=== PATIENT | female | born 1985 | race Caucasian/White ===

== ENCOUNTER 2020-06-22 13:20 | Emergency (ER) | payer OTHER, SELFPAY ==
--- NOTE | ~2020-06-22 | CT_ITS ---
EXAMINATION: CT abdomen pelvis wo con DATE: 06/22/2020 15:44 INDICATION: Right flank pain. TECHNIQUE: Computed tomography (CT) of the abdomen and pelvis was performed without intravenous contr ast. Automated exposure control and iterative reconstruction technique were employed. The dose-length product was 383.15 mGy-cm. COMPARISON: None. FINDINGS: The visualized portions of the lung bases demonstrate minimal atelectasis. No pleural effus ion. The heart size is normal. No pericardial effusion. There is a small sliding hiatal hernia. The l iver and spleen are normal. There are changes of cholecystectomy. The pancreas, adrenal glands, and k idneys are normal. There is no urolithiasis. There are no dilated loops of bowel. There is diverticul osis of the colon without evidence of diverticulitis. The appendix is normal. There are no pathologic ally enlarged lymph nodes. There is no free intraperitoneal fluid. There is a benign bone island in r ight ilium. IMPRESSION: 1. No urolithiasis. 2. Small sliding hiatal hernia. Reviewed, dictated and finalized at location B.
[2020-06-22 13:50] VITALS: BP 144/98; PULSE 109; RESP 16; TEMP 37.2; O2SAT 99
[2020-06-22 14:30] LABS: Add Urine Microscopic? NO; Appearance Urine Clear (Clear); Bilirubin Urine Negative (Negative); Blood Urine Negative (Negative); Color Urine Yellow (Yellow); Glucose Urine UA Negative (Negative); Ketones Urine Negative (Negative); Leukocyte Esterase Ur Negative LEU/UL (Negative); Nitrate Urine Negative (Negative); Protein Urine Negative (Negative); Urobilinogen Urine 0.2 mg/dL (0.2-1.0)
[2020-06-22] MEDS: KETOROLAC 30 MG/ML VIAL (*BKC) IV PUSH (14:39)
[2020-06-22] MEDS: SODIUM CHLORIDE 0.9% IV 1,000 ML 999 ML IV CONT (14:39)
[2020-06-22 14:48] LABS: Basophils Absolute Auto 0.04 K/mm3 (0.00-0.10); Basophils Percent Auto 0.8 % (0.0-1.0); Eosinophils Absolute Auto 0.17 K/mm3 (0.02-0.50); Eosinophils Percent Auto 3.3 % (1.0-6.0); Hemoglobin 13.1 g/dL (12.0-15.0); Immature Granulocyte Absolute 0.02 K/mm3 (0.00-0.00); Immature Granulocyte Percent A 0.4 % (0.0-0.0); Lymphocytes Absolute Auto 1.89 K/mm3 (1.10-4.50); Lymphocytes Percent Auto 36.6 % (18.0-42.0); Mean Corpuscular HGB Conc 33.6 g/dL (32.0-36.0); Mean Corpuscular Hemoglobin 30.4 pg (27.0-31.0); Mean Corpuscular Volume 90.5 fL (78.0-102.0); Mean Platelet Volume 10.4 fl (9.2-11.8); Monocytes Absolute Auto 0.58 K/mm3 (0.10-0.90); Monocytes Percent Auto 11.2 % (2.0-11.0); Neutrophils Absolute Auto 2.5 K/mm3 (1.7-7.2); Neutrophils Percent Auto 47.7 % (50.0-70.0); Platelet Count Result 278 K/mm3 (150-420); Red Blood Count 4.31 M/mm3 (4.20-5.40); White Blood Count 5.2 K/mm3 (4.8-10.8)
[2020-06-22 15:09] LABS: Alanine Aminotransferase 34 U/L (14-59); Albumin Level 3.3 g/dL (3.4-5.0); Alkaline Phosphatase 100 U/L (46-116); Anion Gap 6 mmol/L (8-16); Aspartate Amino Transferase 19 U/L (15-37); Bilirubin,Total 0.2 mg/dL (0.00-1.00); Blood Urea Nitrogen 8 mg/dL (7-18); Calcium 8.3 mg/dL (8.5-10.1); Carbon Dioxide 28 mmol/L (21-32); Chloride 105 mmol/L (98-108); Estimated CRCL calculation 91 ml/min; Estimated Glomerular Filt Rate > 60; Glucose 82 mg/dL (70-99); Osmolality Calculated 285 mOsm/kg (285-295); Potassium 3.9 mmol/L (3.5-5.1); Sodium 139 mmol/L (136-145); Total Protein 6.9 g/dL (6.4-8.2)
[2020-06-22 15:31] LABS: Pregnancy On Board Control Positive; Urine Pregnancy Test Negative
--- NOTE | 2020-06-22 16:10 | ED.BACK ---
HPI - Back Pain/Injury General Chief Complaint: Back Pain/Injury Stated Complaint: possible kidney stone Related Data Allergies Allergy/AdvReac Type Severity Reaction Status Date / Time amoxicillin Allergy Unknown HEADACHE, Verified 06/22/20 14:11 DIARRHEA clavulanic acid Allergy Unknown HEADACHE, Verified 06/22/20 14:11 DIARRHEA levofloxacin Allergy Unknown Rash Verified 06/22/20 14:11 morphine Allergy Unknown ITCHING Verified 06/22/20 14:11 Review of Systems Review of Systems: All systems reviewed & are unremarkable except as noted in HPI and below Constitutional: Constitutional: Reports no additional constitutional complaints Eyes: Eyes: Reports no additional eye complaints ENT: Reports system reviewed and no additional complaints, except as documented Cardiovascular: Cardiovascular: Reports no additional cardiovascular complaints Respiratory: Respiratory: Reports no additional respiratory complaints Gastrointestinal: Gastrointestinal: Reports no additional gastrointestinal complaints Genitourinary: Genitourinary: Reports no additional female genitourinary complaints Musculoskeletal: Musculoskeletal: Reports no additional musculoskeletal complaints and Reports back pain Integumentary/Breasts: Skin/Breast: Reports system reviewed and no additional complaints, except as docu Neurologic: Reports system reviewed and no additional complaints, except as documented Psychiatric: Psychiatric: Reports no additional psychiatric complaints Endocrine: Endocrine: Reports no additional endocrine complaints Hematologic/Lymphatic: Hematologic/Lymphatic: Reports no additional hematologic/lymphatic complaints Allergic/Immunologic: Allergic/Immunologic: Reports no additional allergic/immunologic complaints [facility] Past Medical History Medical History (Updated 06/22/20 @ 16:25 by Maile Montelongo MD) Cholecystectomy planned Social History Social History (Updated 06/22/20 @ 16:30 by Maile Montelongo MD) Smoking status: Never smoker Alcohol intake: never Substance use: never Gender identity (if verbalized by the patient): Female Exam Const: General: cooperative, healthy appearing, comfortable, no acute distress, well developed and anxious HENMT: Head: normal to inspection Eyes: General: appearance normal, both eyes and all related structures Course Vital Signs Vital signs: Vital Signs Temperature 37.2 C 06/22/20 13:50 Pulse Rate 109 H 06/22/20 13:50 Respiratory Rate 16 06/22/20 13:50 Blood Pressure 144/98 H 06/22/20 13:50 Pulse Oximetry 99 06/22/20 13:50 Temperature 37.2 C 06/22/20 13:50 Pulse Rate 109 H 06/22/20 13:50 Respiratory Rate 16 06/22/20 13:50 Blood Pressure 144/98 H 06/22/20 13:50 Pulse Oximetry 99 06/22/20 13:50 MDM - Back Pain/Injury Lab Data Result diagrams: 06/22/20 14:44 06/22/20 14:44 Labs: Lab Results 06/22/20 06/22/20 06/22/20 Range/Units 14:00 14:00 14:44 WBC 5.2 (4.8-10.8) K/mm3 RBC 4.31 (4.20-5.40) M/mm3 Hgb 13.1 (12.0-15.0) g/dL Hct 39.0 (35.0-49.0) % MCV 90.5 (78.0-102.0) fL MCH 30.4 (27.0-31.0) pg MCHC 33.6 (32.0-36.0) g/dL RDW 12.0 (11.6-14.4) % Plt Count 278 (150-420) K/mm3 MPV 10.4 (9.2-11.8) fl Immature Gran % (Auto) 0.4 H (0.0-0.0) % Neut % (Auto) 47.7 L (50.0-70.0) % Lymph % (Auto) 36.6 (18.0-42.0) % [place] % (Auto) 11.2 H (2.0-11.0) % Eos % (Auto) 3.3 (1.0-6.0) % Baso % (Auto) 0.8 (0.0-1.0) % Lymph # (Auto) 1.89 (1.10-4.50) K/mm3 [place] # (Auto) 0.58 (0.10-0.90) K/mm3 Eos # (Auto) 0.17 (0.02-0.50) K/mm3 Baso # (Auto) 0.04 (0.00-0.10) K/mm3 Abs Immat Gran (auto) 0.02 H (0.00-0.00) K/mm3 Absolute Neuts (auto) 2.5 (1.7-7.2) K/mm3 Absolute Nucleated RBC 0.00 (0.00-0.00) K/mm3 Nucleated RBC % 0.0 (0-0.0) % Sodium (136-145) mmol/L Potassium (3.5-5.1) m
[2020-06-22 16:30] VITALS: BP 146/80; PULSE 79; RESP 16; TEMP 36.9; O2SAT 100
== END 2020-06-22 16:31 | disposition home or self-care (01) ==
PROVIDERS: Emergency Provider Emergency Medicine; PCP Internal Medicine
DX: S39.012A Strain of muscle, fascia and tendon of lower back, initial encounter (principal)
CPT/HCPCS: 36415; 74176; 80053; 81003; 81025; 85025; 96361; 96374; 99283; 99284; J1885; J7030

== ENCOUNTER 2021-05-25 16:37 | Outpatient (CLI) | payer OTHER, SELFPAY ==
--- NOTE | ~2021-05-25 | XR_ITS ---
EXAMINATION: XR ankle RT min 3V, XR foot RT min 3V EXAM DATE: 05/25/2021 17:01 (accession [id number]), 05/25/2021 17:02 (accession [id number]) INDICATION: No known recent injury provided at this time. Pain of the right foot and ankle. Symptoms one month. TECHNIQUE: Right foot dorsoplantar, lateral and oblique projections obtained and reviewed. Right ank le frontal, lateral and oblique projections obtained and reviewed. There is no prior study for lois dominguez. FINDINGS: Right metatarsal bones unremarkable. The right ankle mortise appears intact. No talar o steochondral defect. Small inferior calcaneal spur. Several punctate densities in the heel fat-pad pr obably introduced from prior injury. These are not likely clinically significant, assuming patient do es not have soft tissue pain or tenderness along the undersurface of the heel. No other radiopaque fo reign bodies are identified. There are no acute fractures identified. No periosteal reaction or band of sclerosis to suggest subacute stress fracture. There are no bony erosions identified. IMPRESSION: 1. Several punctate foreign bodies in right heel fat-pad, probably from old injury but clinical carlos elation. 2. Small inferior calcaneal spur. Reviewed, dictated and finalized at location B. IMPRESSION: 1. Several punctate foreign bodies in right heel fat-pad, probably from old in jury but clinical correlation. 2. Small inferior calcaneal spur.
== END 2021-05-25 16:38 | disposition home or self-care (01) ==
LOC: CHSIMG 16:41
PROVIDERS: PCP Family Medicine; Visit Provider Family Medicine
DX: M25.571 Pain in right ankle and joints of right foot (principal)
CPT/HCPCS: 73610; 73630

== ENCOUNTER 2025-02-15 14:16 | Emergency (ER) | payer OTHER, SELFPAY ==
[2025-02-15 14:18] VITALS: BP 163/113; PULSE 84; RESP 16; TEMP 36.8; O2SAT 100
--- NOTE | 2025-02-15 14:33 | ED_ITS ---
HPI - Allergic Reaction General Chief complaint: Allergic Reaction Stated complaint: swollen eye Time Seen by Provider: 02/15/25 14:21 Source: patient Mode of arrival: ambulatory Limitations: no limitations History of Present Illness HPI narrative: Patient is a 39-year-old female with a significant past medical history that presents today for allergic reaction. Patient states she has learned to many things and she sees an crm functional analyst and takes multiple allergy pills. She says that she ever wants a while she gets a flare up and her face flares up and normally is her left ear and left eye. And that is the case this time her left ear is red and swollen and her eye is swollen on her top upper eyelid. She normally gets a shot a steroid and a Medrol Dosepak for home med this works well for her. complaint: allergic reaction Onset (ago): day(s) Exposure: unknown Known history of allergy to: Multiple allergies Symptoms: rash, itching and facial swelling Severity: moderate Treatment prior to arrival: benadryl Previous Allergic Reaction History: prior ED visit(s) Related Data Home Medications ?Medication ?Instructions ?Recorded ?Confirmed ?Last Taken ?Type buspirone 5 mg tablet 5 mg PO BID 06/13/22 Unknown History Allergies Allergy/AdvReac Type Severity Reaction Status Date / Time amoxicillin Allergy Unknown HEADACHE, Verified 02/15/25 14:21 DIARRHEA clavulanic acid Allergy Unknown HEADACHE, Verified 02/15/25 14:21 DIARRHEA levofloxacin Allergy Unknown Rash Verified 02/15/25 14:21 morphine Allergy Unknown ITCHING Verified 02/15/25 14:21 Review of Systems Review of Systems: All systems reviewed & are unremarkable except as noted in HPI and below Constitutional: Constitutional: Reports as per HPI Eyes: Eyes: Reports as per HPI Comments: edema above left eyelid ENT: Reports as per HPI Comments: left ear edema and erythema Cardiovascular: Cardiovascular: Reports no additional cardiovascular complaints Respiratory: Respiratory: Reports no additional respiratory complaints Gastrointestinal: Gastrointestinal: Reports no additional gastrointestinal complaints Genitourinary: Genitourinary: Reports no additional female genitourinary complaints Musculoskeletal: Musculoskeletal: Reports no additional musculoskeletal complaints Integumentary/Breasts: Skin/Breast: Reports system reviewed and no additional complaints, except as docu Neurologic: Reports system reviewed and no additional complaints, except as documented Psychiatric: Psychiatric: Reports no additional psychiatric complaints Endocrine: Endocrine: Reports no additional endocrine complaints Hematologic/Lymphatic: Hematologic/Lymphatic: Reports no additional hematologic/lymphatic complaints Allergic/Immunologic: Allergic/Immunologic: Reports no additional allergic/immunologic complaints [facility] Past Medical History Medical History Ear pain Foreign body in right foot Moderate right ankle sprain High ankle sprain of right lower extremity Cholecystectomy planned Surgical History Surgical History History of tonsillectomy History of cholecystectomy History of repair of ACL Family History Family History Other Asthma Grandparent Hypertension Heart disease Other Arthritis Social History Social History Smoking status: Never smoker Alcohol intake: current Drinks per week: 2 Substance use: never Gender identity (if verbalized by the patient): Female Exam Const: General: healthy appearing Nutritional Appearance: well nourished Orientation/consciousness: patient oriented x3 HENMT: Head: normal to inspection Ears: external ears normal Face/Nose/Sinus: Normal external nose present Face and sinus: normal facial exam Eyes: Conjunctivae: conjunctivae normal Pupils: Equal, round and reactive pupils present EOM: EOMs intact bilaterally Neck: Neck: normal visual inspection Chest: Chest palpation & inspection: normal inspection of the chest Resp: Effort & Inspection: normal respiratory effort Auscultation: clear to auscultation bilaterally Cardio: Rate: regular rate Rhythm: regular rhythm GI: GI Palp: Yes Soft to palpation Back/Spine/Pelvis: Back: no CVA tenderness Skin: General skin exam: normal color Wounds: no wounds Other: rash on left ear Neuro: General: patient oriented x3 Cranial nerves: Yes Nystagmus not present Speech: normal speech Gait exam (Neuro): Normal gait present Extrem: General: normal to inspection Psych: Mental Status: mental status grossly normal Affect: normal affect Attitude: cooperative Course Vital Signs Vital signs: Vital Signs Temperature 98.3 F 02/15/25 14:18 Pulse Rate 84 02/15/25 14:18 Respiratory Rate 16 02/15/25 14:18 Blood Pressure 163/113 H 02/15/25 14:18 Pulse Oximetry 100 02/15/25 14:18 Oxygen Delivery Room Air 02/15/25 14:18 Temperature 98.3 F 02/15/25 14:18 Pulse Rate 84 02/15/25 14:18 Respiratory Rate 16 02/15/25 14:18 Blood Pressure 163/113 H 02/15/25 14:18 Pulse Oximetry 100 02/15/25 14:18 Oxygen Delivery Room Air 02/15/25 14:18 MDM - Allergic Reaction MDM Narrative Medical decision making narrative: discussed with patient about allergic reactions and to take a Medrol Dosepak as instructed. Will give her a shot of Decadron here in the ER and the Medrol Robbie for home. Discussed her gets any worse or she has any difficulty breathing to return to the emergency department. Differential Diagnosis Differential diagnosis: Likely allergic reaction Medical Records Attestation: I reviewed the patient's medical records. Discharge Plan Discharge Clinical Impression: Allergic reaction, Allergies Patient Disposition: Home Condition: Stable Instructions: Allergies (ED) Patient Language: Citizen Of [place] Prescriptions: No Action buspirone 5 mg tablet 5 mg PO BID Follow-up/Referrals: Manjinder Moreno MD [Primary Care Provider] - Time of Disposition: 14:41
[2025-02-15] MEDS: dexAMETHasone SOD PHOS INJ 10 MG/ML 1 ML VIAL IM (14:48)
[2025-02-15 15:14] VITALS: BP 135/87; PULSE 80; RESP 17; TEMP 36.8; O2SAT 100
--- OUTSIDE RECORDS SUMMARY | 2025-02-15 16:10 | XMS_ITS ---
Author Organization [facility] [employer] [facility] [place] ([address]) Address [address] [place] [address] Care Team Providers Care Type Proof Reproducer Name Role Phone Manjinder Moreno Primary Care Provider Unavailab Xenia Ferraro Unavailable [phone] REASON FOR VISIT ARC follow-up Encounters Encounter Location Date Provider Diagnosis [facility] [address] [place] [address] 11/05/2024 Xenia Azevedo Plan Of Treatment No Information Progress Notes * Eula AMNDOB:1985 (39 yo F)Acc No.[id number]:11/05/2024 Progress Notes Patient: Eula RAMIREZ Provider: Sharmila Azevedo PA-C :1985 A ge:38 Y S ex:Female Date:11/05/2024 Address:[address] [facility] Pcp:Manjinder Moreno Subjective: * Chief Complaints: * 1 . ARC follow-up. * Medical History: Objective: * Vitals: Assessment: Plan: * Treatment: * Billing Information: * Visit Code: * Procedure Codes: * Electronic signature of Jaylen Azevedo PA-C, MPAS on 02/15/2025 at 04:10 PM CDT Sign off status: Pending * Provider: Sharmila Azevedo PA-C Date: 0 11/05/2024 Generated for Sumanth greene/Mariah/Kathy on: 0 02/15/2025 04:10 PM CDT
--- OUTSIDE RECORDS SUMMARY | 2025-02-15 16:10 | XMS_ITS | Clinical Summary ---
Author Organization [facility] Address [address] [place] [address] Phone Care Team Providers Care Fire Protection Inspector Name Role Phone Unavailable Primary Care Provider Unavailabl e Allergies Active Allergy Reactions Criticality Noted Date Comments Amoxicillin-Pot Clavulanate Other (see Comments) 12/25/2016 Vomiting, diarrhea Levofloxacin Other (see Comments) 12/25/2016 Muscle weakness/pain Morphine Hives 06/19/2017 Medications HYDROcodone-acet aminophen (NORCO) 5-325 MG Tablet Take 1-2 Tabs by mouth every 4 hours as needed for Pain. 40 Tab 7 Active Additional Information Patient not taking.Reported on 07/26/2017 Naproxen Sodium (ALEVE) 220 MG Capsule Take by mouth. Activ e meloxicam (MOBIC) 7.5 MG Tablet Take 1 Tab by mouth daily. 8 Active Meloxicam 10 MG Capsule Take by mouth. Activ e TRAMADOL HCL ER PO Take by mouth. Activ e cefdinir (OMNICEF) 300 MG Capsule TK 1 C PO BID 0 9 Active Clindamycin HCl (CLEOCIN) 300 MG Capsule 0 9 Active ondansetron (ZOFRAN-ODT) 4 MG TABLET DISPERSIBLE DIS 1 T ON THE TONGUE Q 8 H PRF NAUSEA 0 9 Active predniSONE (DELTASONE) 20 MG Tablet 0 9 Active Active Problems No known active problems Immunizations Immunization Administration Dates Next Due Influenza Vaccine greater than 3 yrs 08/26/2018 MMR Vaccine 04/26/2014 Family History Medical History Relation Name Comments High Cholesterol Father Hypertension Father High Cholesterol Mother Hypertension Mother Relation Name Status Comments Father Alive Mother Alive Social History Tobacco Use Types Packs/Day Years Used Date Smoking Tobacco: Never Smokeless Tobacco: Never Tobacco Cessation:Counseling Given: Yes Alcohol Use Standard Drinks/Week Comments Yes 0 (1 standard drink = 0.6 oz pur e alcohol) social Sexually Active Control Partners Comments Yes Comments No Sex and Gender Information Value Date Recorded Sex Assigned at Not on file Legal Sex Female 10:00 PM CDT Gender Identity Not on file Sexual Orientation Not on file Last Filed Vital Signs Vital Sign Reading Time Taken Comments Blood Pressure 134/70 10/08/2020 3:55 PM COMPONENTS ENGINEER Pulse 90 10/08/2020 3:55 PM COMPONENTS ENGINEER Temperature 37.1 C (98.7 F) 10/08/2020 3:55 PM COMPONENTS ENGINEER Respiratory Rate 16 10/08/2020 3:55 PM COMPONENTS ENGINEER Oxygen Saturation 98% 10/08/2020 3:55 PM COMPONENTS ENGINEER Inhaled Oxygen Concentration - - Weight 95.7 kg (211 lb) 10/08/2020 3:55 PM COMPONENTS ENGINEER Height 167.6 cm (5' 6 ) 06/26/2019 9:16 AM CDT Body Mass Index 34.06 06/26/2019 9:16 AM CDT Plan of Treatment Health Maintenance Due Date Last Done Comments Hepatitis C Virus (HCV) Screening 1985 Hepatitis B Immunization (1 of 3 - 19+ 3-dose series) 2005 Pap Smear 2007 Cervical Cancer Screening (CCS) 2016 HPV/Cotest 2016 Influenza Immunization (#1) 06/28/202407/30, 08/23/2018, 08/11/2017, Additional history exists SARS-COV-2 Immunization ( season) 2024 10/06/2021, 01/24/2021, 01/03/2021 Respiratory Syncytial Virus (RSV) Immunization (Adult) (1 - 1-dose 75+ series) 2061 DTaP/Tdap/Td Immunization Discontinued 07/03/2020 TdaP Immunization Completed 07/03/2020 Meningococcal Immunization (ACWY) Aged Out No longer eligible based on patient's age to complete this topic Pneumococcal Immunization Combined Aged Out No longer eligible based on patient's age to complete this topic Rotavirus Immunization Aged Out No lo nger eligible based on patient's age to complete this topic Insurance
--- OUTSIDE RECORDS SUMMARY | 2025-02-15 16:10 | XMS_ITS | Referral Summary ---
Author Organization [facility] Address [address] [place] [address] Care Team Providers Care Homebirth Midwife Name Role Phone Gary Lopez MD Primary Care Provider [phone] Allergies Active Allergy Reactions Criticality Noted Date Comments Amoxicillin-Pot Clavulanate Nausea & Vomiting Low 12/25/2016 Levofloxacin Other (See comments) Low 12/25/2016 Muscle weakness/pain Morphine Hives Medium Reaction: HIVES, Medications cetirizine (ZyrTEC) 5 mg tablet Take 5 mg by mouth daily Active busPIRone (BUSPAR) 5 mg tabletIndicatio ns:Generalized Anxiety Disorder Take 1 tablet three times a day as needed 90 tablet 2 2 Active ibuprofen (ADVIL,MOTRIN) 800 mg tablet TAKE 1 TABLET BY MOUTH EVERY 8 HOURS NEEDED WITH MENSTRUAL CYCLE. 30 tablet 1 2 Active Additional Information Patient not taking.Reported on 08/01/2022 doxycycline 100 mg tablet Take 1 tablet/capsule (100 mg total) by mouth 2 (two) times a day 3 Active methylPREDNISol one (MEDROL DOSEPACK) 4 mg Dosepack TAKE 6 TABLETS ON DAY 1 DIRECTED ON PACKAGE AND DECREASE BY 1 TAB EACH DAY FOR A TOTAL OF 6 DAYS 3 Active metoprolol XL (TOPROL-XL) 50 mg extended release tablet Take 1 tablet (50 mg total) by mouth daily 3 Active predniSONE (DELTASONE) 10 mg tablet PLEASE SEE ATTACHED FOR DETAILED DIRECTIONS 4 Active montelukast (SINGULAIR) 10 mg tablet 4 Active desonide (DESOWEN) 0.05 % ointment APPLY 1 APPLICATION TOPICALLY TWICE A DAY FOR 7 DAYS 4 Active benzonatate (TESSALON) 200 mg capsule Take 1 capsule (200 mg total) by mouth 3 (three) times a day 4 Active azithromycin (ZITHROMAX) 250 mg tablet TAKE 2 TABLETS BY MOUTH TODAY, THEN TAKE 1 TABLET DAILY FOR 4 DAYS DIRECTED 4 Active Active Problems Problem Noted Date Diagnosed Date Menorrhagia with regular cycle 12/20/2020 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 Overview (01/31/2017): High risk HPV infection Social History Tobacco Use Types Packs/Day Years Used Date Smoking Tobacco: Never Smokeless Tobacco: Never Tobacco Cessation:Counseling Given: Not Answered Alcohol Use Standard Drinks/Week Comments No 0 (1 standard drink = 0.6 oz pur e alcohol) PHQ-2 Answer Date Recorded PHQ-2 Total Score (If total score is 3 or more points, staff should administer the PHQ-9) 0 02/12/2024 Comments No Sex and Gender Information Value Date Recorded Sex Assigned at Not on file Legal Sex Female 3:12 PM [employer] Gender Identity Not on file Sexual Orientation Not on file Last Filed Vital Signs Vital Sign Reading Time Taken Comments Blood Pressure 124/76 02/12/2024 10:30 AM CDT Pulse 71 08/01/2022 10:52 AM CDT Temperature 36.2 C (97.1 F) 12/18/2020 6:49 PM [employer]Y INTERNS[employer]IP Respiratory Rate 16 12/18/2020 6:49 PM [employer] INTER[employer] Oxygen Saturation 99% 12/18/2020 6:49 PM [employer] Inhaled Oxygen Concentration - - Weight 104.8 kg (231 lb) 02/12/2024 10:30 AM CDT Height 167.6 cm (5' 6 ) 02/12/2024 10:30 AM CDT Body Mass Index 37.28 02/12/2024 10:30 AM CDT Plan of Treatment Not on file Procedures Procedure Name Priority Date/Time Associated Diagnosis Comments PAP AND HPV, REFLEX TO HPV GENOTYPES Routine 02/12/2024 1:12 PM CDT Well woman exam from Last 3 Months or Most Recently Relevant to Health Maintenance Results * Pap and HPV, reflex to HPV Genotypes (02/12/2024 1:12 PM CDT) Clinical indication Comment [facility] - 01 Comment: NEGATIVE FOR INTRAEPITHELIAL LESION OR MALIGNANCY. CELLULAR CHANGES ASSOCIATED WITH INFLAMMATION ARE PRESENT. Specimen adequacy: Comment [facility] - 01 Comment: Satisfactory for evaluation. Endocervical and/or squamous metaplastic cells (endocervical component) are present. Clinician provided ICD10 Comment [facility] - 01 Comment:Z01.419 Performed by Comment [facility] - 01 Comment:Alex Rincon ytotechnologist (ASCP) . . [facility] - 01 Note: Comment [facility] - 01 Comment: The Pap smear is a screening test designed to aid in the detection of premalignant and malignant conditions of the uterine cervix. It is not a diagnostic procedure and should not be used as the sole means of detecting cervical cancer. Both false-positive and false-negative reports do occur. Test methodology Comment [facility] - 01 Comment: This liquid based ThinPrep(R) pap test was screened with the use of an image guided system. HPV Aptima Negative Negative [facility] 02 Comment: This nucleic acid amplification test detects fourteen high-risk HPV types (16,18,31,33,35,39,45,51,52,56,58,59,66,68) without differentiation. HPV Genotype Reflex Comment [facility] - 01 Comment:Criteria not met, HP V Genotype not performed. Thin prep 02/12/2024 1:12 PM CDT 02/12/2024 Narrative [facility] - 02/16/2024 9:08 AM CDT Performed at: - [facility] [id number] Travel Insurance Agent: Ita Esparza MD, Phone: [phone] Performed at: 02 - [facility] [id number] Travel Insurance Agent: Ita Esparza MD, Phone: [phone] Specimen Comment: No. of containers..01 ThinPrep Vial Felisa Olivares ENGINEERING GROUP LEADER LAB CYTOLOGY ORDERABLES Final Re sult [facility] - 01 [facility] 02 from Last 3 Months or Most Recently Relevant to Health Maintenance Insurance Care Teams Homebirth Midwife Relationship Specialty Start Date End Date Gary Lopez MD [address] [place] [address] PCP - General Internal Medicine 05/13/17
--- OUTSIDE RECORDS SUMMARY | 2025-02-15 16:10 | XMS_ITS | Clinical Summary ---
Author Organization [facility] Address [address] [place] [address] Care Team Providers Care Director Utilization Management Name Role Phone Gary Lopez MD Primary Care Provider [phone] Allergies Active Allergy Reactions Criticality Noted Date [...] 08/25/2012 Overview (01/31/2017): High risk HPV infection Surgical History Surgery Date Site/Laterality Comments OTHER SURGICAL HISTORY 10/28/2011 - 10/27/2012 : 2 hr labor OTHER SURGICAL HISTORY Positive HR HPV: Paps now normal ANTERIOR CRUCIATE LIGAMENT REPAIR 11/28/2006 - 12/25/2006 CHOLECYSTECTOMY TONSILLECTOMY 06/28/2007 - 07/27/2007 COLPOSCOPY 04/13/2019 Medical History Medical History Date Comments Hx Other Medical 2011 ; Outc ome: 40 week 6 lb(s) 13 oz Male Hx Other Medical 2008 Positive HR HPV Abnormal Pap smear of cervix + H PV Family History Medical History Relation Name Comments Hyperlipidemia Father Hypertension Father Hypertension Mother Coronary artery disease Other Fami ly history of Coronary artery disease; Breast cancer Neg Hx Colon cancer Neg Hx Ovarian cancer Neg Hx Uterine cancer Neg Hx Relation Name Status Comments Father Mother Other Social History Tobacco Use Types Packs/Day Years [...] on file Legal 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 Gender Identity Not on file Sexual Orientation Not on file Obstetrics History Para Term AB IAB SAB Ectopic Multiple Livin g Live Births 3 2 2 1 1 2 2 Date Outcome GA Total Labor Labor/2nd/3rd Weight Sex Type Anes PTL Shweta A1 A5 Name Clin SAB 0 Term 2.948 kg (6 lb 8 oz) F Vag-Sp ont 2 Term 2.948 kg (6 lb 8 oz) M Vag-Sp ont Last Filed Vital Signs Vital Sign Reading Time Taken Comments Blood Pressure 124/76 02/12/2024 10:30 AM CDT Pulse 71 08/01/2022 10:52 AM CDT Temperature 36.2 C (97.1 F) 12/18/2020 6:49 PM 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 Respiratory Rate 16 12/18/2020 6:49 PM 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 Oxygen Saturation 99% 12/18/2020 6:49 PM 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 Inhaled Oxygen Concentration - - Weight 104.8 kg (231 lb) 02/12/2024 10:30 AM CDT Height 167.6 cm (5' 6 ) 02/12/2024 10:30 AM CDT Body Mass Index 37.28 02/12/2024 10:30 AM CDT Plan of Treatment Health Maintenance Due Date Last Done Comments Hepatitis C Screening 1985 DTaP/Tdap/Td Vaccine (1 - Tdap) 1997 Varicella Vaccines (1 of 2 - 13+ 2-dose series) 1999 Hepatitis B Screening 2004 Cervical Cancer Screening 02/11/20252023, 02/07/2023, 08/06/2022, Additional history exists Depression Screening 02/11/2025 02/12/2024, 02/07/2023, 02/05/2022, Additional history exists Regular Well Visit/Exam 18-64 02/11/2025 02/12/2024, 02/07/2023, 02/05/2022, Additional history exists Influenza Vaccine Completed 08/18/2024, , 08/23/2018, Additional history exists HPV Vaccines Aged Out No longer eligi ble based on patient's age to complete this topic Pneumococcal vaccine <65 Aged Out No longer eligible based on patient's age to complete this topic Procedures Procedure Name Priority Date/Time Associated Diagnosis [...] do occur. Test methodology Comment [facility] - Comment: This liquid based ThinPrep(R) pap test was screened with the use of an image guided system. HPV Aptima Negative Negative [facility] Comment: This nucleic acid amplification test detects fourteen high-risk HPV types (16,18,31,33,35,39,45,51,52,56,58,59,66,68) without differentiation. HPV Genotype Reflex Comment [facility] - 01 Comment:Criteria not met, HP V Genotype not performed. Thin prep 02/12/2024 1:12 PM CDT 02/12/2024 Narrative [facility] - 02/16/2024 9:08 AM CDT Performed at: - [facility] [id number] It Architect: Ita Esparza MD, Phone: [phone] Performed at: - [facility] [id number] It Architect: Ita Esparza MD, Phone: [phone] Specimen Comment: No. of containers..01 ThinPrep Vial us Felisa Olivares CLASSIFIED ADVERTISING CLERK LAB CYTOLOGY ORDERABLES Final Re sult [facility] - 01 [facility] 02 from Last 3 Months or Most Recently Relevant to Health Maintenance Insurance [facility] Care Teams Director Utilization Management Relationship Specialty Start Date End Date Gary Lopez MD [address] [place] [address] PCP - General Internal Medicine 05/13/17
--- OUTSIDE RECORDS SUMMARY | 2025-02-15 16:11 | XMS_ITS ---
Author Organization [facility] [place] ([address]) Address [address] [facility] [address] [place] [address] Care Team Providers Care Hospital Unit Clerk Name Role Phone Manjinder Moreno Primary Care Provider Unavailab Xenia Ferraro Unavailable [phone] REASON FOR VISIT Needs a call back Medications Medication SIG (Take, Route, Fr equency, Duration) Notes Start Date End Date Status predniSONE 20 MG 2 tabs Orally Once a day for 5 days 02/15/2025 Active Encounters Encounter Location Date Provider Diagnosis [address] [address] 02/15/2025 Xenia Azevedo Plan Of Treatment Medication Medication Name Sig Start Date Stop Date Notes predniSONE 20 MG 2 tabs Orally Once a day for 5 days 02/15 Progress Notes * Eula MANDOB:1985 (39 yo F)Acc No.[id number]:02/15/2025 Patient: Eula RAMIREZ :1985 A ge:39 Y S ex:Female Address:[address] [place] [address] * Refills Start predniSONE Tablet, 20 MG, Orally, 10 Tablet, 2 tabs, Once a day, 5 days, Refills=0 * true * Date: Generated for Sumanth greene/Mariah/eTransmitting on: 0 02/15/2025 04:11 PM CDT
--- OUTSIDE RECORDS SUMMARY | 2025-02-15 16:11 | XMS_ITS | Patient Health Record ---
Author Organization [employer] [facility] ([address]) Address [address] [place] [address] Care Team Providers Care Cloth Sponger Name Role Phone Manjinder Moreno Primary Care Provider Unavailab le Xenia Azevedo Unavailable [phone] Selena Garcia Unavailable [phone] Gloria Guillermo Unavailable [phone] [facility], Provider Unavailable Unavailab le Allergies Allergen (clinical drug ingredient) Drug/Non Drug Allergy documented on EMR Reaction Allergy Type Onset Date Status LEVOQUIN (uncoded) Sever joint pain Allergy Active amoxicillin / clavulanate Augmentin Vomiting, diarrhea , dizziness Drug Allergy Active morphine Morphine Hives, itching Drug Allergy Ac tive Reason For Referral No Information Medications Medication SIG (Take, Route, Frequency, Duration) Notes Start Date End Date Status predniSONE 20 MG 2 tabs Orally Once a day for 5 days 02/15/2025 Active Cetirizine HCl 10 MG 1 tab(s) orally twi ce a day for 30 days Active Benzonatate 150 MG 1 capsule as needed Orally Three times a day for 14 days Active Pepcid 20 MG 1 tab(s) orally 2 ti mes a day for 30 days Active DESONIDE 0.05% 1 janelle applied topica lly 2 times a day for 7 days Active Desonide 0.05 % 1 janelle applied topica lly 2 times a day for 7 days Active MONTELUKAST 10 mg 1 tab(s) orally once a day for 30 days Active PEPCID 20 mg 1 tab(s) orally 2 ti mes a day for 30 days Active CETIRIZINE 10 mg 1 tab(s) orally twic e a day for 30 days Active Montelukast Sodium 10 MG TAKE 1 TABLET B Y MOUTH EVERY DAY for 90 Active Metoprolol Succinate ER 50 MG 1 tab(s) orally once a day Active Benzonatate 200 MG 1 capsule as needed Orally Three times a day for 10 days Active Immunizations Vaccine Route Administration Date Status Comme nts FluZone Quadrivalent Unknown 08/01/2023 Administered Po rtal Information Social History Tobacco Use: Social History Observation Description Date Details (start date - stop date) Never Smoker NA - NA Smoking Smart Form: Question Answer Notes Are you a: never smoker Tobacco Control (Standard) Question Answer Notes Tobacco use: Nonsmoker Problems Problem Type SNOMED Code ICD Code Onset Dates Problem Status W/U Status Risk Notes Problem Chronic allergic conjunctivitis (18671069) Other chronic allergic conjunctivitis (H10.45) Active confirmed Problem Allergic rhinitis caused by pollen (disorder) (47553038) Allergic rhinitis due to pollen (J30.1) Active confirmed Problem Allergic rhinitis (60272338) Other allergic rhinitis (J30.89) Active confirmed Problem Chronic rhinitis (13845124) Chronic rhinitis (J31.0) Active confirmed Problem Uncomplicated mild persistent asthma (640262959) Mild persistent asthma, uncomplicated (J45.30) Active confirmed Problem Uncomplicated moderate persistent asthma (791342907) Moderate persistent asthma, uncomplicated (J45.40) Active confirmed Problem Uncomplicated severe persistent asthma (197536746) Severe persistent asthma, uncomplicated (J45.50) Active confirmed Problem Urticaria (665633523) Other urticaria (L50.8) Active confirmed Problem Allergic rhinitis caused by animal hair and dander (564727670084309) Allergic rhinitis due to animal (cat) (dog) hair and dander (J30.81) Active confirmed Problem Eruption of skin (216917440) Rash and other nonspecific skin eruption (R21) Active confirmed Problem Chronic cough (45393140) Chronic cough (R05.3) Active confirmed Vital Signs Oximetry 98 % 11/19/2024 Blood pressure diastolic 132 mm Hg 11/19/2024 Height 67 in 11/19/2024 Blood pressure systolic 176 mm Hg 11/19/2024 Weight 234.8 lbs 11/19/2024 BMI 36.77 kg/m2 11/19/2024 Encounters Encounter Location Date Provider Diagnosis [address] [address] 04/11/2024 Provider [facility] Other urticaria L50.8 and Rash and other nonspecific skin eruption R21 [address] [address] 06/11/2024 Xenia Azevedo Other urticaria L50. 8 ; Rash and other nonspecific skin eruption R21 ; Allergic rhinitis due to pollen J30.1 ; Other allergic rhinitis J30.89 ; Other chronic allergic conjunctivitis H10.45 ; Chronic cough R05.3 and Acute cough R05.[address] [address] 11/19/2024 Xenia Azevedo Other urticaria L50. 8 ; Rash and other nonspecific skin eruption R21 ; Allergic rhinitis due to pollen J30.1 ; Other allergic rhinitis J30.89 ; Other chronic allergic conjunctivitis H10.45 ; Chronic cough R05.3 and Elevated blood-pressure reading, without diagnosis of hypertension R03.[address] [address] 03/16/2024 Xenia Azevedo Other urticaria L50. [address] [address] 02/15/2025 Xenia Azevedo Assessments Encounter Date Diagnosis (ICD Code) Assessment Notes Treatment Notes Treatment Clinical Notes Section Notes 03/16/2024 Other urticaria (ICD-10 - L50.8) 04/11/2024 Other urticaria (ICD-10 - L50.8) 04/11/2024 Rash and other nonspecific skin eruption (ICD-10 - R21) 06/11/2024 Other urticaria (ICD-10 - L50.8) Pictures and history c/w CSU - labs for underlying mast cell, thyroid, and autoimmune conditions all normal -great response to Zyrtec BID, Pepcid BID, and Singulair QD. continue current treatment regimen. If she has no hives after 3-6 months will reduce meds -continue to take pictures of breakouts -briefly discussed xolair if refractory to treatment 06/11/2024 Rash and other nonspecific skin eruption (ICD-10 - R21) Eula was seen last month for evaluation of episodic b/l eyelid swelling and rash x 5 yrs. Her exam and description is concerning for ACD. Previously has been given Elidel. -Daiana recommended patch testing to identify any culprit of her rash. She wants to discuss her recent breakout with her hairdresser. 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 Has used Desonide for a few days and is now only use Vanicream -Highly consider patch testing over winter11/19/2024 Other urticaria (ICD-10 - L50.8) Pictures and history c/w CSU - current doing well - labs for underlying mast cell, thyroid, and autoimmune conditions all normal -great response to Zyrtec BID, Pepcid BID, and Singulair QD. continue current treatment regimen. If she has no hives after 3-6 months will reduce meds -continue to take pictures of breakouts -briefly discussed xolair if refractory to treatment 11/19/2024 Rash and other nonspecific skin eruption (ICD-10 - R21) Eula was seen last month for evaluation of episodic b/l eyelid swelling and rash x 5 yrs. Her exam and description is concerning for ACD. Previously has been given Elidel. -Daiana recommended patch testing to identify any culprit of her rash. She wants to discuss her recent breakout with her hairdresser. 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 Has used Desonide + Vanicream with benefit -Highly consider patch testing 11/19/2024 Allergic rhinitis due to pollen (ICD-10 - J30.1) Eula suffers from atopic disease to mold, dust mites, and weeds, based upon our skin testing and clinical history. Accordingly, we have introduced a new, aggressive medication regimen, discussed nasal washes and allergy-specific avoidance measures. We also discussed adjunctive therapies including subcutaneous, specific allergen immunotherapy as relates to the treatment and prevention of atopic disease. They are currently considering the risks, benefits and alternatives to this care. Risks: bleeding, infection, allergic reaction, anaphylaxis; Benefits: reduced need for medications, improved symptoms, disease modification. Alternatives: watch/wait, change medication regimen, improve allergy avoidance measures. Due to OOP I checked ImmunoCaps which were negative. Highly consider finishing testing with selective IDs. She would like to hold off as she is doing well 06/11/2024 Allergic rhinitis due to pollen (ICD-10 - J30.1) Eula suffers from atopic disease to mold, dust mites, and weeds, based upon our skin testing and clinical history. Accordingly, we have introduced a new, aggressive medication regimen, discussed nasal washes and allergy-specific avoidance measures. We also discussed adjunctive therapies including subcutaneous, specific allergen immunotherapy as relates to the treatment and prevention of atopic disease. They are currently considering the risks, benefits and alternatives to this care. Risks: bleeding, infection, allergic reaction, anaphylaxis; Benefits: reduced need for medications, improved symptoms, disease modification. Alternatives: watch/wait, change medication regimen, improve allergy avoidance measures. Due to OOP I checked ImmunoCaps which were negative. Highly consider finishing testing with selective IDs. She would like to hold off as she is doing well 06/11/2024 Other allergic rhinitis (ICD-10 - J30.89) Follow allergen avoidance, meds and consider SCIT as an adjunctive treatment to current regimen 11/19/2024 Other allergic rhinitis (ICD-10 - J30.89) Follow allergen avoidance, meds and consider SCIT as an adjunctive treatment to current regimen 11/19/2024 Other chronic allergic conjunctivitis (ICD-10 - H10.45) Given ocular signs and symptoms I encouraged allergy avoidance measures and meds as above. If symptoms persist, consider adding additional medications including intraocular antihistamine/mas t cell stabilizer, PRN and consider SCIT as an adjunctive measure 06/11/2024 Other chronic allergic conjunctivitis (ICD-10 - H10.45) Given ocular signs and symptoms I encouraged allergy avoidance measures and meds as above. If symptoms persist, consider adding additional medications including intraocular antihistamine/mas t cell stabilizer, PRN and consider SCIT as an adjunctive measure 11/19/2024 Chronic cough (ICD-10 - R05.3) Annual bronchitis with chronic cough lasting weeks requiring steroids for years -spirometry last visit was normal -discussed trial of controller to curb steroids in Fall. No episodes this fall or winter! 06/11/2024 Chronic cough (ICD-10 - R05.3) Annual bronchitis with chronic cough lasting weeks requiring steroids for years -spirometry last visit was normal -discussed trial of controller to curb steroids in Fall 06/11/2024 Acute cough (ICD-10 - R05.1) Lingering cough due to recent URI. Lungs clear on exam -will provide Tessalon Perles for PRN use 11/19/2024 Elevated blood-pressure reading, without diagnosis of hypertension (ICD-10 - R03.0) BP elevated on PE. Recheck at follow-up and discuss with PMD. Likely due to anxiety today 06/11/2024 Other 11/19/2024 Other Plan Of Treatment No Information Insurance Providers Payer Name Payer Address Payer Phone Subscriber Number Group Number Insured Name Patient Relationship to Insured Coverage Start Date Coverage End Date [facility] [address] [place] [address] [id number] Eula Zhong Self - patient is the insured 5 Medical (General) History Medical History History ICD Code Hypertension Surgical History Surgery Date(Month/Year) Tonsillectomy 07/17/2017 ACL replacement 12/10/2002 Removal of galbladder 10/22/2012
--- OUTSIDE RECORDS SUMMARY | 2025-02-15 16:11 | XMS_ITS ---
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 Now only using Vanicream. Has had a few episodes of rash of ears and eyelids - happening after hair dye. Had 1 episode in July., Recurrent breakouts of welts since 6th grade - treated with IM steroids twice in life. Previously seen by Dr. Salamanca, provided Elidel with benefit but burned. Now on high dose antihistamines, Annual bronchitis each August requiring PO steroids. None this year! -no prior smoking hx., Avoids Levaquin and Augmentin, Previously skin tested years ago with Dr. Salamanca in [place] - no prior immunotherapy. SPT updated last visit showing mold, dust mites, and weeds Medications Medication SIG (Take, Route, Frequency, Duration) Notes Start Date End Date Status Benzonatate 150 MG 1 capsule as needed Orally Three times a day for 14 days Active Pepcid 20 MG 1 tab(s) orally 2 ti mes a day for 30 days Active DESONIDE 0.05% 1 janelle applied topica lly 2 times a day for 7 days Active Desonide 0.05 % 1 janelle applied topica lly 2 times a day for 7 days Active Metoprolol Succinate ER 50 MG 1 tab(s) orally once a day Active Cetirizine HCl 10 MG 1 tab(s) orally twi ce a day for 30 days Active MONTELUKAST 10 mg 1 tab(s) orally once a day for 30 days Active PEPCID 20 mg 1 tab(s) orally 2 ti mes a day for 30 days Active CETIRIZINE 10 mg 1 tab(s) orally twic e a day for 30 days Active Montelukast Sodium 10 MG TAKE 1 TABLET B Y MOUTH EVERY DAY for 90 Active Benzonatate 200 MG 1 capsule as needed Orally Three times a day for 10 days Active Social History Tobacco Use: Social History Observation Description Date Details (start date - stop date) Never Smoker NA - NA Smoking Smart Form: Question Answer Notes Are you a: never smoker Tobacco Control (Standard) Question Answer Notes Tobacco use: Nonsmoker Vital Signs Blood pressure systolic 176 mm Hg 11/19/19 25 Blood pressure diastolic 132 mm Hg 025 Height 67 in 11/19/2024 Weight 234.8 lbs 11/19/2024 BMI 36.77 kg/m2 11/19/2024 Oximetry 98 % 11/19/2024 Encounters Encounter Location Date Provider Diagnosis [facility] [address] [place] [address] 11/19/2024 Xenia Azevedo Other urticaria L50. 8 ; Rash and other nonspecific skin eruption R21 ; Allergic rhinitis due to pollen J30.1 ; Other allergic rhinitis J30.89 ; Other chronic allergic conjunctivitis H10.45 ; Chronic cough R05.3 and Elevated blood-pressure reading, without diagnosis of hypertension R03.0 Assessments Encounter Date Diagnosis (ICD Code) Assessment Notes Treatment Notes Treatment Clinical Notes Section Notes 11/19/2024 Other urticaria (ICD-10 - L50.8) Pictures and [...] hold off as she is doing well 11/19/2024 Other allergic rhinitis (ICD-10 - J30.89) [...] Fall. No episodes this fall or winter! 11/19/2024 Elevated blood-pressure reading, without diagnosis of hypertension (ICD-10 - R03.0) BP elevated on PE. Recheck at follow-up and discuss with PMD. Likely due to anxiety today 11/19/2024 Other Plan Of Treatment Medication Medication Name Sig Start Date Stop Date Notes Benzonatate 150 MG 1 capsule as needed Orally Three times a day for 14 days DESONIDE 0.05% 1 janelle applied topica lly 2 times a day for 7 days MONTELUKAST 10 mg 1 tab(s) orally once a day for 30 days PEPCID 20 mg 1 tab(s) orally 2 ti mes a day for 30 days CETIRIZINE 10 mg 1 tab(s) orally twice a day for 30 days Treatment Notes Assessment Notes Other urticaria Pictures and history c/w CSU - current doing well - labs for underlying mast cell, thyroid, and autoimmune conditions all normal -great response to Zyrtec BID, Pepcid BID, and Singulair QD. continue current treatment regimen. If she has no hives after 3-6 months will reduce meds -continue to take pictures of breakouts -briefly discussed xolair if refractory to treatment Rash and other nonspecific skin eruption Eula was seen last month for evaluation [...] Vanicream with benefit -Highly consider patch testing Allergic rhinitis due to pollen Eula suffers from atopic disease to mold, [...] hold off as she is doing well Other allergic rhinitis Follow allergen avoidance, meds and consider SCIT as an adjunctive treatment to current regimen Other chronic allergic conjunctivitis Gi nhung ocular signs and symptoms I encouraged allergy avoidance measures and meds as above. If symptoms persist, consider adding additional medications including intraocular antihistamine/mast cell stabilizer, PRN and consider SCIT as an adjunctive measure Chronic cough Annual bronchitis with chronic cough lasting weeks requiring steroids for years -spirometry last visit was normal -discussed trial of controller to curb steroids in Fall. No episodes this fall or winter! Elevated blood-pressure read ing, without diagnosis of hypertension BP elevated on PE. Recheck at follow-up and discuss with PMD. Likely due to anxiety today Next Appt Details Follow Up: 3-6 Months, Reaso n: Evaluation and Management Progress Notes * Eula MANDOB:1985 (38 yo F)Acc No.[id number]:11/19/2024 Progress Notes Patient: Eula RAMIREZ Provider: Sharmila Azevedo PA-C :1985 A ge:38 Y S ex:Female Date:11/19/2024 Address:[address] [place], [place] [id number] Pcp:Manjinder Moreno Subjective: * Chief Complaints: * E pisodic swelling with overlying skin changes of b/l eyelids x 5 years - used Desonide for a few days with resolution. Now only using Vanicream. Has had a few episodes of rash of ears and eyelids - happening after hair dye. Had 1 episode in July.Recurrent breakouts of welts since 6th grade - treated with IM steroids twice in life. Previously seen by Dr. Salamanca, provided Elidel with benefit but burned. Now on high dose antihistaminesAnnual bronchitis each August requiring PO steroids. None this year! -no prior smoking hx.Avoids Levaquin and AugmentinPreviously skin tested years ago with Dr. Salamanca in [place] - no prior immunotherapy. SPT updated last visit showing mold, dust mites, and weeds * HPI: * Introduction: I had the pleasure of seeing Valerie Man a 38 year-old WF with a history of HTN and allergies here today for interval a llergy evaluation and management. Here in consultation with Dr. Moreno. Eula is alone for todays visit. Seen last in 05/2024. She is doing better with rashes, did have 1 episode of eyelid dermatitis in 07/2024 and used Vanicream + Desonide. Presumed rxn to makeup. Changed to [facility] and doing well. Still considering patch testing recommended last visit. F or the last 5 years she has developed episodics swelling and itching of her eyes with overlying skin changes with flaking and bumps. S een roughly [address] 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 She was given Zyrtec, Singulair, and Elidel. Never offered immunotheray. Also seen there for rashes. She found the Elidel helpful but it burned. She continues have breakouts every few weeks to months. She is currently not applying anything to her face and tries to wash with water and soap she makes (containing olive oil, avocado oil, coconut alarcon butter, castor oil, lye, goats milk). She does not have any hobbies that involve arts/crafts, painting, woodworking,or furniture repair. She works at home for the [employer]. She does get her nails done sometimes currently w/o nail iranian. Eula also has upper airway symptoms each Spring and Fall. She recently switched from Eladia from Zyrtec.Descriptors of her upper airways symptoms are outlined below. Skin testing performed last visit showed dust mites, molds, and weeds. During these peak seasons she suffers from congestion, drainage, itchy watery eyes, and sinus pressure. At least once a year in August she gets bronchitis and is treated with PO steroids. No episodes this year. She has never been given inhalers or diagnosed with asthma. No hx of PNA. Never hospitalized for her breathing. She feels here allergies are stable this last few months. Starting in the 6th grade Eula started developing hives. She gets raised pruritic welts on various parts of her body. Sometimes waking up with small welts on her arms and trunk. Twice in her life she had a few hives and by the next morning they formed one big welt on her abdomen. This last occurred a few years ago. She has never had work-up. Has pictures. No associated swelling. ROS otherwise normal. At least once a month she sees a few hives. She does not routinely use NSAIDs or drink alcohol. Placed on Zyrtec BID, Pepcid BID, and SIngulair she is very pleased! No interval hives the past month. Here to review labs. Eula also avoids Augmentin and Levaquin - both caused side effects. With Levaquin she had joint pain and with Augmentin she had GI symptoms and dizziness. No rashes,swelling or respiratory symptoms with either. She has 2 kids. No one else in the family has rashes.Today tearful in office. 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 BP and anxiety both high. Hasnt seen her PCP to discuss. T leonora, she reports no fevers, chills, night sweats or other constitutional symptoms.. * ROS: A LLERGY: Positive p er the HPI and history, otherwise unremarkable.?scratchy throat Y es. i tchy eyes Y es. e ar fullness Y es. s inus congestion Y es. S PECIAL SENSES: Positve for n one. i tching eyes Y es. e ar infections Y es. C ONSTITUTIONAL: weight gain Y es. f atigue Y es. P ositive for?none. E NT: Positive p er the HPI and history, otherwise unremarkable.? R ESPIRATORY: Positive p er the HPI and history, otherwise unremakable.? O PHTHALMOLOGY: diminished vision Y es. e ye irritation Y es. d rainage from eyes Y es. b lurring of vision Y es. P ositive for p er the HPI and history, otherwise unremarkable. i tching Y es. s welling of the eyelids Y es.?redness Y es. E NDOCRINOLOGY: Positive for n one. C ARDIOLOGY: chest pain Y es. p alpitations N o. P ositive for n one. G ASTROENTEROLOGY: Positive for n one. U ROLOGY: Positive for n one. D ERMATOLOGY: hives (urticaria) Y es. P ositive for p er the HPI and history, otherwise unremakable. N EUROLOGY: tingling numbness Y es. m kim loss Y es. P ositive for n one. H EMATOLOGY/LYMPH: Positive for n one. M USCULOSKELETAL: Positive for n one. P SYCHOLOGY: Positive for n one. A ll other review of systems per the HPI and history, otherwise unremarkable. * Medical History: * Surgical History: T onsillectomy 07/17/2017ACL replacement 12/10/2002Removal of galbladder 10/22/2012 * Hospitalization/Major Diagno stic Procedure: N o Hospitalization History. * Family History: F ather: alive, Yes. M other: alive, Yes. P aternal Grand Father: Yes. P aternal Grand Mother: Yes. M aternal Grand Father: Yes. M aternal Grand Mother: Yes. C hildren: Yes. 1 son(s) , 1 daughter(s) - healthy. . son-asthma. * Social History: M arital Status What is your marital status? m arried A lcohol Screening Do you ever drink alcoholic beverages? Y es Number of drinks per occasion: 2 Frequency? M onthly S moking Have you ever smoked tobacco: n ever smoked Additional Findings: Tobacco Non-User A ggressive non-smoker Are you a : n ever smoker S moking Smart Form Are you a: n ever smoker R ecreational drug use Have you ever used recreational drugs? N o D etails on consumption of certain products? Do you regularly consume products with aspartame; Equal or NutraSweet? N o Do you regularly consume products with artificial coloring??No Have you ever noticed worsening of your rash with these food items? N o E xercise What kind(s) of exercise do you perform regularly? w alking How often do you perform this exercise? d aily A re any of the following personal care products containing fragrance, dye or preservatives used regularly? Shampoo: Y es Conditioner: Y es Soap: N o Laundry Detergent: N o Fabric Softener: N o Deodorant: Y es Perfume, cologne, after shave: Y es Air freshners or other scented products: N o Hair coloring dyes or rinses: Y es Other: N o O ccupation Are you currenly employed? 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 number of years?5 Do you believe that your current or previous occupation has any bearing on your illness? N o Do you have any pending or planned legal action against your current or former employer which pertains to your medical illness? N o Do you anticipate that your evaluation will be used in any legal action against your current employer or former employer? 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 N o Are you currently a student? N o E nvironmental History Living environment: p rivate home,with pets Where is the home located? r ural Age of home: 7 0 How long have you lived there? 5 years or more How many people live in the home? 4 H ome description Basement: Y es Any water damage in basement? N o Smokers in the home? N o Smokers outside the home? N o Air Conditioning? Y es Central Air? Y es Forced air heating? N o Fireplace? N o Wood burning stove? N o Do you vacuum the home? Y es Air purification systems? N o Pillow and mattress dust-proof encasings? N o Do you use a humidifier? N o Do you own any pets? Y es What kind(s)? (click all that apply) d og,cattle Where do your pets sleep? a nywhere in the house Fabric softeners used? N o Plants in the home? N o Is there carpeting in your bedroom? Y es Age of carpet? 5 Do you have [id number] carpeting? N o What is the age of your mattress (years)? 3 What material(s) are used to manufacture your bedding and pillow? s ynthetic What is the age of your pillow (years)? 2 What material are your bedding items made of? s ynthetic Do you sleep with quilts or blankets or a duvet? Y es What material? n atural fiber (e.g. cotton) How many dogs? 2 How many cattle? 4 0 T obacco Control (Standard) Tobacco use: N onsmoker * Medications: T akingCetirizine HCl 10 MG Tablet 1 tab(s) orally twice a day Pepcid 20 MG Tablet 1 tab(s) orally 2 times a day Desonide 0.05 % Ointment 1 janelle applied topically 2 times a day Metoprolol Succinate ER 50 MG Tablet Extended Release 24 Hour 1 tab(s) orally once a day Benzonatate 200 MG Capsule 1 capsule as needed Orally Three times a day Montelukast Sodium 10 MG Tablet TAKE 1 TABLET BY MOUTH EVERY DAY Taking Cetirizine HCl 10 MG Tablet 1 tab(s) orally twice a day Taking Pepcid 20 MG Tablet 1 tab(s) orally 2 times a day Taking Desonide 0.05 % Ointment 1 janelle applied topically 2 times a day Taking Metoprolol Succinate ER 50 MG Tablet Extended Release 24 Hour 1 tab(s) orally once a day Taking Benzonatate 200 MG Capsule 1 capsule as needed Orally Three times a day Taking Montelukast Sodium 10 MG Tablet TAKE 1 TABLET BY MOUTH EVERY DAY Not-Taking/PRNCETIRIZINE 10 mg tablet 1 tab(s) orally twice a day Pepcid 20 mg tablet 1 tab(s) orally 2 times a day MONTELUKAST 10 mg tablet 1 tab(s) orally once a day DESONIDE 0.05% ointment 1 janelle applied topically 2 times a day Medication List reviewed and reconciled with the patientNot-Taking/PRN CETIRIZINE 10 mg tablet 1 tab(s) orally twice a day Not-Taking/PRN Pepcid 20 mg tablet 1 tab(s) orally 2 times a day Not-Taking/PRN MONTELUKAST 10 mg tablet 1 tab(s) orally once a day Not-Taking/PRN DESONIDE 0.05% ointment 1 janelle applied topically 2 times a day Medication List reviewed and reconciled with the patient * Allergies: A ugmentin: Vomiting, diarrhea , dizzinessLEVOQUIN: Sever joint painMorphine: Hives, itchingno[Allergies Verified] Objective: * Vitals: B P:176/132mm Hg, Repeat BP:154/108, HR:98/min, Pulse Oximetry:98%, CU-Q2oL: 0, UAS7: 0, Ht: 67 in, Wt: 234.8 lbs, BMI:36.77Index. * Examination: G eneral examination: General appearance: p leasant, well-developed, well-nourished. HEENT: p upils equal, round, and reactive to light and accommodation, conjunctiva are clear bilaterally, no tenderness to palpation of the sinuses, TM's without evidence of acute infection, turbinates 1+ and pale inferiorly bilaterally, posterior oropharynx is mildly erythematous and cobblestoning is present, erythema on pharyngeal wall, no exudates, no tongue swelling, and uvula is midline. Oral cavity: n ormal, no lesions. Neck, thyroid : s upple, non-tender, no anterior cervical lymphadenopathy. Heart: R RR, S1-S2, no murmurs, no rubs, no gallops. Lungs: c lear to auscultation and percussion in all lung singletary, no wheezes or crackles. Neurologic exam: u nremarkable. Skin: c lear no rash. Peripheral pulses: n ormal (2+) bilaterally. Back: n ormal. Extremities: n ormal ROM, no clubbing, no cyanosis, no edema. Assessment: * Assessment: 1. R hortencia and other nonspecific skin eruption - R21 (Primary) 2 . O ther urticaria - L50.8 3 . A llergic rhinitis due to pollen - J30.1 4 .?Other allergic rhinitis - J30.89 5 . O ther chronic allergic conjunctivitis - H10.45 6 . C hronic cough - R05.3 7 . E levated blood-pressure reading, without diagnosis of hypertension - R03.0 Plan: * Treatment: 2. O ther urticaria Continue CETIRIZINE tablet, 10 mg, 1 tab(s), orally, twice a day, 30 days, 60 Tablet, Refills 0;?Continue PEPCID tablet, 20 mg, 1 tab(s), orally, 2 times a day, 30 days, 60, Refills 0; C ontinue MONTELUKAST tablet, 10 mg, 1 tab(s), orally, once a day, 30 days, 30, Refills 1. Notes: Pictures and history c/w CSU - current doing well - labs for underlying mast cell, thyroid, and autoimmune conditions all normal -great response to Zyrtec BID, Pepcid BID, and Singulair QD. continue current treatment regimen. If she has no hives after 3-6 months will reduce meds -continue to take pictures of breakouts -briefly discussed xolair if refractory to treatment 3. A llergic rhinitis due to pollen Notes: Eula suffers from atopic disease to mold, [...] hold off as she is doing well 4. O ther allergic rhinitis Notes: Follow allergen avoidance, meds and consider SCIT as an adjunctive treatment to current regimen 5. O ther chronic allergic conjunctivitis Notes: Given ocular signs and symptoms I encouraged allergy avoidance measures and meds as above. If symptoms persist, consider adding additional medications including intraocular antihistamine/mast cell stabilizer, PRN and consider SCIT as an adjunctive measure 6. C hronic cough Notes: Annual bronchitis with chronic cough lasting weeks requiring steroids for years -spirometry last visit was normal -discussed trial of controller to curb steroids in Fall. No episodes this fall or winter! ? 7. E levated blood-pressure reading, without diagnosis of hypertension Notes: BP elevated on PE. Recheck at follow-up and discuss with PMD. Likely due to anxiety today? 8. O thers Start Benzonatate Capsule, 150 MG, 1 capsule as needed, Orally, Three times a day, 14 days, 42 Capsule, Refills 0. * Procedure Codes: 9 6160 PT-FOCUSED HLTH RISK [id number] DOC MEDS VERIFIED W/PT OR [id number] Kerline Azevedo Incident-to * Preventive Medicine: Counseling: M edication instruction: W atch for side effects of prescribed medications, Nasal steroid/antihistamine instruction: avoid septum. E ducation: G ENERAL EDUCATION: Our staff spent an additional 30 minutes in direct contact with the patient educating them on their current diagnoses and proper treatment and prevention of symptoms and the proper use of medications, HIVES EDUCATION:, Avoid opioid-containing analgesics, Avoid excessive alcohol use, SKIN CARE EDUCATION:, Skin care regimen reviewed with patient, Apply moisturizing cream head-to-toe to lock in moisture within 2 minutes of exiting bath, Avoid fragrances, dyes, preservatives in personal care products, Use topical steroids PRN to active lesions. E ducation 2: A RC EDUCATION: Our staff discussed the appropriate allergen avoidance measures and medication utilization including upper airway hygiene with daily nasal washes given the patient's clinical status and diagnoses. SCIT EDUCATION: Discussed allergy immunotherapy including the relative risks, benefits and alternatives to this treatment as an adjunctive measure to current therapy, Allergy Immunotherapy: Risks: bleeding, infection, allergic reaction, anaphylaxis = severe allergic reaction that can cause ; Benefits: reduced need for medications, improved symptoms, disease modification. Alternatives: watch/wait, change medication regimen, improve allergy avoidance measures, Our staff discussed the warning signs of anaphylaxis and the indications to use self-injectable epinephrine and seek urgent or emergent care. P atient education material sent to portal? Y es * Follow Up: 3 -6 Months (Reason: Evaluation and Management) * Billing Information: * Visit Code: 03818 Office Visit, Est Pt., Level 4. Modifiers: 25 * Procedure Codes: 97448 PT-FOCUSED HLTH RISK ASSMT. G8427 DOC MEDS VERIFIED W/[place]. [address] Kerline Azevedo Incident-to. * S [employer] Sign off status: Completed true * Provider: Sharmila Azevedo PA-C Date: 0 11/19/2024 Generated for Sumanth greene/Mariah/Salvatoreitting on: 0 02/15/2025 04:11 PM CDT History and Physical Notes * HPI (History of Present Illness) Category Sub-Category Detail Notes Category Not es *Introduction I had the pleasure o f seeing Eula Man a 38 year-old WF with a history of HTN and allergies here today for interval allergy evaluation and management. Here in consultation with Dr. Moreno. Eula is alone for todays visit. Seen last in 05/2024. She is doing better with rashes, did have 1 episode of eyelid dermatitis in 07/2024 and used Vanicream + Desonide. Presumed rxn to makeup. Changed to [facility] and doing well. Still considering patch testing recommended last visit. For the last 5 years she has developed episodics swelling and itching of her eyes with overlying skin changes with flaking and bumps. Seen roughly [address] 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 She was given Zyrtec, Singulair, and Elidel. Never offered immunotheray. Also seen there for rashes. She found the Elidel helpful but it burned. She continues have breakouts every few weeks to months. She is currently not applying anything to her face and tries to wash with water and soap she makes (containing olive oil, avocado oil, coconut alarcon butter, castor oil, lye, goats milk). She does not have any hobbies that involve arts/crafts, painting, woodworking,or furniture repair. She works at home for the [employer]. She does get her nails done sometimes currently w/o nail iranian. Eula also has upper airway symptoms each Spring and Fall. She recently switched from Eladia from Zyrtec. Descriptors of her upper airways symptoms are outlined below. Skin testing performed last visit showed dust mites, molds, and weeds. During these peak seasons she suffers from congestion, drainage, itchy watery eyes, and sinus pressure. At least once a year in August she gets bronchitis and is treated with PO steroids. No episodes this year. She has never been given inhalers or diagnosed with asthma. No hx of PNA. Never hospitalized for her breathing. She feels here allergies are stable this last few months. Starting in the 6th grade Eula started developing hives. She gets raised pruritic welts on various parts of her body. Sometimes waking up with small welts on her arms and trunk. Twice in her life she had a few hives and by the next morning they formed one big welt on her abdomen. This last occurred a few years ago. She has never had work-up. Has pictures. No associated swelling. ROS otherwise normal. At least once a month she sees a few hives. She does not routinely use NSAIDs or drink alcohol. Placed on Zyrtec BID, Pepcid BID, and SIngulair she is very pleased! No interval hives the past month. Here to review labs. Eula also avoids Augmentin and Levaquin - both caused side effects. With Levaquin she had joint pain and with Augmentin she had GI symptoms and dizziness. No rashes,swelling or respiratory symptoms with either. She has 2 kids. No one else in the family has rashes. Today tearful in office. 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 BP and anxiety both high. Hasnt seen her PCP to discuss. Today, she reports no fevers, chills, night sweats or other constitutional symptoms. Examination Category Sub-Category Detail Notes Category Not es General examination HEENT: pupils equal , round, and reactive to light and accommodation, conjunctiva are clear bilaterally, no tenderness to palpation of the sinuses, TM's without evidence of acute infection, turbinates 1+ and pale inferiorly bilaterally, posterior oropharynx is mildly erythematous and cobblestoning is present, erythema on pharyngeal wall, no exudates, no tongue swelling, and uvula is midline Neck, thyroid : supple, non-tender, no anterior cervical lymphadenopathy Heart: RRR, S1-S2, no murmu rs, no rubs, no gallops Lungs: clear to auscultatio n and percussion in all lung singletary, no wheezes or crackles Extremities: normal ROM, no clubb ing, no cyanosis, no edema General appearance: pleasant, well-devel oped, well-nourished Skin: clear no rash Neurologic exam: unremarkable Oral cavity: normal, no lesions Peripheral pulses: normal (2+) bilatera lly Back: normal
--- OUTSIDE RECORDS SUMMARY | 2025-02-15 16:11 | XMS_ITS | Clinical Summary ---
Author Organization [facility] Address [address] [place] [address] Care Team Providers Care Fish And Game Club Manager Name Role Phone None, Provider MD Primary Care Provider Unavaila ble Allergies Active Allergy Reactions Criticality Noted Date Comments Amoxicillin Unknown 04/27/2021 Levofloxacin Unknown 04/27/2021 Morphine Unknown 04/27/2021 Medications HYDROcodone-anurag taminophen (NORCO) 5-325 MG tabletIndicatio ns:Acute Pain < 7 Day Supply Take 1-2 tablets by mouth every 6 (six) hours as needed. Indications: Acute Pain < 7 Day Supply 16 tablet 04/27/2021 Active Social History Tobacco Use Types Packs/Day Years Used Date Smoking Tobacco: Never Assessed Comments No Sex and Gender Information Value Date Recorded Sex Assigned at Not on file Legal Sex Female 9:48 AM CDT Gender Identity Not on file Sexual Orientation Not on file Last Filed Vital Signs Vital Sign Reading Time Taken Comments Blood Pressure 147/88 04/27/2021 10:07 AM CDT Pulse 88 04/27/2021 10:07 AM CDT Temperature 36.9 C (98.4 F) 04/27/2021 10:07 AM CDT Respiratory Rate 18 04/27/2021 10:07 AM CDT Oxygen Saturation 100% 04/27/2021 10:07 AM CDT Inhaled Oxygen Concentration - - Weight 93.9 kg (207 lb) 04/27/2021 10:07 AM CDT Height 160 cm (5' 3 ) 04/27/2021 10:07 AM CDT Body Mass Index 36.67 04/27/2021 10:07 AM CDT Plan of Treatment Health Maintenance Due Date Last Done Comments Cervical Cancer Screening Pa p Smear (Age 30 to 64) Every 3 Years 1986 Annual Physical 1989 Hepatitis C 2004 DTaP, Tdap and Td Vaccines ( 1 - Tdap) 2005 Hepatitis B Vaccines (1 of 3 - 19+ 3-dose series) 2005 Cervical Cancer Screening Pa p with HPV Testing (Age 30 to 64) Every 5 Years 2016 Cervical Cancer Screening wi th HPV 2016 COVID-19 Vaccine (3 - 2023-2 5 season) 2024 01/24/2021, 01/03/2021 HPV Vaccines Aged Out No longer eligi ble based on patient's age to complete this topic Meningococcal B Vaccine Aged Out No l onger eligible based on patient's age to complete this topic Meningococcal Vaccine Aged Out No pipo maty eligible based on patient's age to complete this topic Pneumococcal Vaccine: Pediatrics (0 to 5 Years) and At-Risk Patients (6 to 49 Years) Aged Out No longer eligible b ased on patient's age to complete this topic RSV Immunizations Under 20 Months Aged Out No longer eligible b ased on patient's age to complete this topic Insurance Care Teams Fish And Game Club Manager Relationship Specialty Start Date End Date None, Provider, PCP - General 04/27/21
--- OUTSIDE RECORDS SUMMARY | 2025-02-15 16:11 | XMS_ITS | Clinical Summary ---
Author Organization [facility] Address [address] [place] [address] Care Team Providers Care Group Director Name Role Phone Gary Lopez MD Primary Care Provider [phone] Source Comments [facility],non-owned Affiliates and Associated Physician Practices is amultiple site organization consisting of ambulatory clinics and hospital sitesin [place], [place], [place] and [place]. This disclosure is being madepursuant to the Care Everywhere program and may not contain all information available regarding this patient. Last updated 18.[facility] Allergies Active Allergy Reactions Criticality Noted Date Comments Augmentin GI Discomfort 12/25/2016 Levofloxacin Myalgias 12/25/2016 Morphine Urticaria Medium 06/19/2017 Medications * Be aware that medications may not be up to date on this document. Alwaysverify current medications with the patient. 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 Gender Identity Not on file Sexual Orientation Not on file Last Filed Vital Signs Vital Sign Reading Time Taken Comments Blood Pressure 118/74 06/24/2018 10:48 AM CDT Pulse 85 06/24/2018 10:48 AM CDT Temperature 37.2 C (98.9 F) 06/24/2018 10:48 AM CDT Respiratory Rate 20 01/14/2017 4:40 PM CDT Oxygen Saturation 99% 01/14/2017 4:40 PM CDT Inhaled Oxygen Concentration - - Weight 90.7 kg (200 lb) 06/24/2018 10:48 AM CDT Height 167.6 cm (5' 6 ) 06/24/2018 10:48 AM CDT Body Mass Index 32.28 06/24/2018 10:48 AM CDT Plan of Treatment Health Maintenance Due Date Last Done Comments HIV SCREENING 2001 HEPATITIS C SCREENING 11/29/2004 DTAP/TDAP/TD VACCINES (1 - Tdap) 2005 HEPATITIS B VACCINE (1 of 3 - 19+ 3-dose series) 2005 COVID-19 VACCINE (1 - 2023-2 5 season) 2024 DEPRESSION SCREENING 10/28/2024 INFLUENZA VACCINE (Season Ended) 2025 ZOSTER VACCINE (1 of 2) 2036 HIB VACCINE Aged Out No longer eligi ble based on patient's age to complete this topic HPV VACCINE Aged Out No longer eligi ble based on patient's age to complete this topic MENINGOCOCCAL (Group B) VACC INE SHARED DECISION-MAKING Aged Out No longer eligibl e based on patient's age to complete this topic MENINGOCOCCAL GROUPS A/C/Y/W VACCINE Aged Out No longer eligible b ased on patient's age to complete this topic PNEUMOCOCCAL VACCINE Aged Out No long er eligible based on patient's age to complete this topic Insurance Care Teams Group Director Relationship Specialty Start Date End Date Gary Lopez MD PCP - General Internal Medicine 12/25/16
--- OUTSIDE RECORDS SUMMARY | 2025-02-15 16:36 | XMS_ITS | Clinical Summary ---
Author Organization [facility] Address [address] [place] [address] Care Team Providers Care Medical Accounts Receivable Specialist Name Role Phone Gary Lopez MD Primary Care Provider [phone] Source Comments [facility],non-owned Affiliates and Associated Physician Practices is amultiple site organization consisting of ambulatory clinics and hospital sitesin [place], [place], [place] and [place]. This disclosure is being madepursuant to the Care Everywhere program and may not contain all information available regarding this patient. 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
--- OUTSIDE RECORDS SUMMARY | 2025-02-15 16:36 | XMS_ITS | Clinical Summary ---
Author Organization [facility] Address [address] [place] [address] Care Team Providers Care Relationship Assoc Name Role Phone None, Provider MD Primary [...] to complete this topic Insurance Care Teams Relationship Assoc Relationship Specialty Start Date End Date None, Provider, PCP - General 04/27/21
--- OUTSIDE RECORDS SUMMARY | 2025-02-15 16:36 | XMS_ITS | Clinical Summary ---
Author Organization [facility] Address [address] [place] [address] Care Team Providers Care Fast Food Services Manager Name Role Phone Gary Lopez MD Primary Care Provider [phone]- [phone] Allergies Active Allergy Reactions Criticality Noted Date [...] on file Legal Sex Female 3:12 PM WEBSITE PROJECT MANAGER Gender Identity Not on file Sexual Orientation [...] 36.2 C (97.1 F) 12/18/2020 6:49 PM WEBSITE PROJECT MANAGER Respiratory Rate 16 12/18/2020 6:49 PM WEBSITE PROJECT MANAGER Oxygen Saturation 99% 12/18/2020 6:49 PM WEBSITE PROJECT MANAGER Inhaled Oxygen Concentration - - Weight 104.8 [...] 02/16/2024 9:08 AM CDT Performed at: - [facility] [id number] Power Line Installer: Ita Esparza MD, Phone: [phone] Performed at: - [facility] [id number] Power Line Installer: Ita Esparza MD, Phone: [phone] Specimen Comment: No. of containers..01 ThinPrep Vial us Felisa Olivares USED CAR SALES SUPERVISOR LAB CYTOLOGY ORDERABLES Final [facility] - 01 [facility] [place] 02 from Last 3 Months or Most Recently Relevant to Health Maintenance Insurance [facility] Care Teams Fast Food Services Manager Relationship Specialty Start Date End Date Gary Lopez MD [address] [place] [address] PCP - General Internal Medicine 05/13/17
--- OUTSIDE RECORDS SUMMARY | 2025-02-15 16:36 | XMS_ITS | Referral Summary ---
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 RETENTION MANAGER Gender Identity Not on file Sexual Orientation Not on file Last Filed Vital Signs Vital Sign Reading Time Taken Comments Blood Pressure 124/76 02/12/2024 10:30 AM CDT Pulse 71 08/01/2022 10:52 AM CDT Temperature 36.2 C (97.1 F) 12/18/2020 6:49 PM RETENTION MANAGER Respiratory Rate 16 12/18/2020 6:49 PM RETENTION MANAGER Oxygen Saturation 99% 12/18/2020 6:49 PM RETENTION MANAGER Inhaled Oxygen Concentration - - Weight [...] 02/16/2024 9:08 AM CDT Performed at: - [address] [id number] Wool Grader: Ita Esparza MD, Phone: [phone] Performed at: 02 - [address] [id number] Wool Grader: Ita Esparza MD, Phone: [phone] Specimen Comment: No. of containers..01 ThinPrep Vial Felisa Olivares FISHING ROD MARKER LAB CYTOLOGY ORDERABLES Final Re sult [facility] - 01 LAB [place] 02 from Last 3 Months or Most Recently Relevant to Health Maintenance Insurance [facility] HMO/PPO Address: [place] [address] [facility] H[facility]/PPO Address: [address] [place] [address] [facility] H[facility]/PPO Address: [facility] [address] [place] [address] Care Teams Sanding Machine Tender Relationship Specialty Start Date End Date Gary Lopez MD [address] [place] [address] PCP - General Internal Medicine 05/13/17
--- OUTSIDE RECORDS SUMMARY | 2025-02-15 16:36 | XMS_ITS | Continuity of Care Document ---
Author Organization [facility] Address [address] [place] [address] [address] [place] [address] Phone Care Team Providers Care Eligibility Worker Name Role Phone Jaylen Paredes OD Unavailable Unavailable Allergies, Adverse Reactions, Alerts Substance Reaction Status Criticality POTASSIUM CLAVULANATE Active No Inf ormation AMOXICILLIN TRIHYDRATE Active No In formation amoxicillin Active No Information levofloxacin Active No Information morphine Active No Information Medications Medication Instructions Dosage Effective Dates (start - stop) Status Comments FML Forte 0.25 % eye drops,suspension instill 1 drop by ophthalmic route 2 times every day into affected eye(s) 1 drop - Active olopatadine 0.1 % eye drops instill 1 drop by ophthalmic route 2 times every day into both eyes 1 drop - Active doxycycline hyclate 100 mg capsule take 1 capsule by oral route 2 times every day 100 MG - Active meloxicam 7.5 mg tablet take 1 tablet by oral route every day 7.5 MG - Active Procedures Procedure Date Office/outpatient Visit, Est Office/outpatient Visit, Est Office/outpatient Visit, Est Office/outpatient Visit, Est Advance Directives Directive Yes / No Effective Date File Name No Information Encounters Encounter Description Practice Location Reason(s) For Visit Diagnoses Date Provider Providers Copied on Encounter [facility], [address], [place], [place], [id number], tel:[phone] SEC Khurram BARKSDALE Professional No Information Sep-0 201 8 Lena [place]. [address], [place], [address], [place]. tel:[phone] Office/outpa tient Visit, [facility], [address] [place] [address] [address], [place], [place], [id number], [place] tel:[phone] SEC Khurram [place] Professional 1 week f/u (chief complaint) Allergic dermatitis of right eyelidAllergic contact dermatitis of left eyelid 8 Lena York. [address], [address] [place] [address], [place], [address], [place]. tel:[phone] Referring Provider: Jaylen Paredes OD R, [address] [place] [address], [address]. tel:[phone] Office/outpa tient Visit, [facility], [address] [place], [place] [address] [address], [place], [place], [id number], [place] tel:[phone] SEC [place] Professional Follow up visit (chief complaint) Allergic conjunctivitis of both eyesAllergic dermatitis of eyelid, unspecified laterality 8 Raman Champagne. [address] [facility] [address], [place], [place], [id number], [place]. tel:[phone] Referring Provider: Jaylen Wetzel, [address] [place] [address], [address]. tel:[phone] Office/outpa tient Visit, [facility], [address] [place], [place] [address] [address], [place], [place], [id number], [place] tel:[phone] SEC Khurram [place] Professional Follow up visit (chief complaint) Allergic conjunctivitis of both eyesAllergic dermatitis of eyelid, unspecified laterality 8 Lena York. [address], [place], [address], [place]. tel:[phone] Referring Provider: Jaylen Paredes OD R, [address] [place] [address], [address]. tel:[phone] Office/outpa tient Visit, [facility], [address], [place], [place], [id number], [place] tel:[phone] UVALDO BARKSDALE Professional eye infection (chief complaint) Allergic conjunctivitis of both eyesAllergic dermatitis of eyelid, unspecified laterality 8 Lena York. [address], [address], [place], [address], [place]. tel:[phone] Family History Family Member Type Diagnosis Age At Onset No Information Payers Payer name Insurance type Covered republican ID Nithin brian(s) [facility] CI [id number] Social History Type Description Quantity Date Captured Comments Alcohol Use Details Unknown Caffeine Use Details Unknown Tobacco Use Status No Information Smoking Status No Information Sex Female Chief Complaint And Reason For Visit No Information Reason For Referral Reason For Referral No Information Plan Of Treatment Date Type Action Status Patient Education Lana: Care Instructi ons completed History Of Present Illness Encounter Date Complaint History Of Prese nt Illness 1 week f/u The 32 year old female presents for evaluation of 1 week f/u in the right eye and left eye. Patient states the allergies are coming back. Patient states eyes are burning and itching that started two days ago. Patient using FML bid OU and olopatadine bid OU. Follow up visit The 32 year old female presents for a 2 day follow up. Patient is using FML qid ou and an oral steroid. Patient is doing much better. Patient states she figured out what the problem was....she was using a bar shampoo and was reading through the ingredients and thinks she was having a reaction. Follow up visit The 32 year old female presents for a 1 week conjunctivitis ou follow up. Patient is using FML qid ou. Patient states her eyes feel some better. Patient states she woke up this am and the right side of her face is red and really itching. Patient states the right side of face is warm to touch. eye infection The 32 year old female presents for evaluation of eye infection in the right eye and left eye. Patient states eyes started becoming irritated about 2 months ago and then last week the eyes got extremely swollen, itching, red, and cracked skin that bleeds. Patient has used shamika and warm compresses. Patient using doxy and sulfa gtt prescribed from urgent care. Patient states she was told it was an reaction to ragweed. Functional Status Date Functional Assessmen t No Information Instructions Date Instruction Additional Infor dick Impression/Plan Impression/Plan Impression/Plan Impression/Plan Assessments Type Assessment Date No Information Patient Care Teams Name Effective Dates (start - stop) Status Members No Information
--- OUTSIDE RECORDS SUMMARY | 2025-02-15 16:36 | XMS_ITS | Clinical Summary ---
Author Organization [facility] Address [address] [place] [address] Phone Care Team Providers Care Title Checker Name Role Phone Unavailable Primary Care Provider [...] Comments Blood Pressure 134/70 10/08/2020 3:55 PM CASKET ASSEMBLER METAL Pulse 90 10/08/2020 3:55 PM CASKET ASSEMBLER METAL Temperature 37.1 C (98.7 F) 10/08/2020 3:55 PM CASKET ASSEMBLER METAL Respiratory Rate 16 10/08/2020 3:55 PM CASKET ASSEMBLER METAL Oxygen Saturation 98% 10/08/2020 3:55 PM CASKET ASSEMBLER METAL Inhaled Oxygen Concentration - - Weight 95.7 kg (211 lb) 10/08/2020 3:55 PM CASKET ASSEMBLER METAL Height 167.6 cm (5' 6 ) 06/26/2019 [...]
== END 2025-02-15 15:14 | disposition home or self-care (01) ==
PROVIDERS: Emergency Provider Family Medicine; PCP Family Medicine
DX: T78.40XA Allergy, unspecified, initial encounter (principal); X58.XXXA Exposure to other specified factors, initial encounter
CPT/HCPCS: 96372; 99283; J1100